=== PATIENT | female | born 1975 | race Caucasian/White ===

== ENCOUNTER 2017-02-20 18:19 | Emergency (ER) | payer OTHER ==
[~2017-02-20] VITALS: Ht 162.6 cm; Wt 64.6 kg
[~2017-02-20 18:19] MED LIST: MULT-506 PO
[2017-02-20 18:25] VITALS: TEMP 37.1; Ht 162.6 cm; Wt 64.6 kg
[2017-02-20] MEDS ORDERED: OXYC-643 PO (19:01)
--- NOTE | 2017-02-20 19:43 | DIAGNOSTIC IMAGING REPORT ---
LEFT RIBS UNILATERAL WITH PA CHEST CLINICAL HISTORY: left eval for ptx/fx. Left-sided chest pain. COMPARISON STUDY: Chest 02/12/2011. FINDINGS: The lungs are clear. The heart is normal in size. No pleural effusions. No pneumothorax. There are acute nondisplaced left anterior sixth through eighth rib fractures. There are healing/healed left anterior fourth and fifth rib fractures. IMPRESSION: 1. No pneumothorax. 2. Acute nondisplaced left anterior sixth through eighth rib fractures. 3. Healing/healed left anterior fourth and fifth rib fractures. Electronically signed by: Martin Portillo M.D. 02/20/2017 7:42 PM Dictated Date/Time: 02/20/2017 7:39 PM
[2017-02-20 20:14] VITALS: BP 110/50; PULSE 70; O2SAT 98
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
== END 2017-02-20 20:16 | disposition home or self-care (01) ==
LOC: C.EDB 18:20
DX: S22.42XD Multiple fractures of ribs, left side, subsequent encounter for fracture with routine healing (principal); Y04.0XXD Assault by unarmed brawl or fight, subsequent encounter; Y07.03 Male partner, perpetrator of maltreatment and neglect; Z90.710 Acquired absence of both cervix and uterus; Z80.9 Family history of malignant neoplasm, unspecified; Z83.3 Family history of diabetes mellitus; Z82.49 Family history of ischemic heart disease and other diseases of the circulatory system; Z87.442 Personal history of urinary calculi